=== PATIENT | female | born 1990 | race Caucasian/White ===

== ENCOUNTER → 2020-08-26 15:28 | Outpatient (CLI) | payer OTHER, MEDICAID, SELFPAY ==
--- NOTE | 2020-08-26 15:32 | DI.US.S_ITS ---
PROCEDURE: US OB >= 14 WEEKS FETUS INDICATIONS: 20 week Anatomy scan OUTSIDE/PRIOR DATING DATA: Last menstrual period (LMP): 04/08/20. LMP-based estimated date of delivery (JOHN): 01/13/21 . First dating scan (date and location): This study . Estimated date of delivery (JOHN) from first dating scan: 01/14/21 . TECHNIQUE: Real-time scanning was performed of the fetus, with image documentation and biometric measurements. Endovaginal scanning: Not needed COMPARISON: None. FINDINGS: General: A single living intrauterine gestation is present. Presentation: Breech. Placenta: Placental position is anterior , without previa. Amniotic fluid index: 14.4 cm, normal range is 5-24 cm. heart rate: 150 beats per minute. Maternal cervical canal: 4.2 cm long. Normal lower limit is 2.5 cm. biometrics: Biparietal diameter: 4.6 cm, 19 weeks 5 days Head circumference: 17.1 cm, 19 weeks 5 days Abdominal circumference: 15.1 cm, 20 weeks 2 days Femur length: 3.2 cm, 19 weeks 6 days Estimated gestational age from initial scan: 20 weeks 0 days Composite gestational age from present scan: 19 weeks 6 days Estimated weight and percentile: 327 g, 46th percentile Measurement variability for biometric dating: +/- 7 days from 14 weeks to 15 weeks 6 days gestation, +/- 10 days from 16 weeks to 21 weeks 6 days gestation, +/- 2 weeks from 22 weeks to 27 weeks 6 days gestation, +/- 3 weeks for 28 weeks gestation or later. weight reference: 4500 g or EFW >90/95% is considered macrosomia or large for gestational age. EFW <10% is small for gestational age. EFW 5% or less is considered intra-uterine growth restriction. Anatomic survey: Neuro: Ventricles are non-dilated at less than 10 mm. Cisterna magna is normal at 3-11 mm. Cerebellum is normal in size and morphology. Nuchal skin fold: Normal at less than 6 mm between 14-21 weeks gestational age. Face: Nose and lips, facial profile are normal. Spine: No evidence for spina bifida. Heart: 4-chambered heart is present, with normal ventricular outflow tracts. Diaphragm: Diaphragm is intact. Stomach: Left-sided stomach is present. Kidneys: No hydronephrosis. Normal is less than 5 mm in 2nd trimester, less than 7 mm in 3rd trimester. Cord: 3-vessel cord has orthotopic insertion. Bladder: Normal in size. Extremities: All 4 extremities identified. IMPRESSION: Appropriate interval growth, no anomaly seen. The delivery date is projected to be centered on 01/14/21. Current presentation is breech and the placenta is anterior. Dictated by: Trung Kumar M.D. on 08/26/2020 at 17:34 Approved by: Trung Kumar M.D. on 08/26/2020 at 17:37
== END ==
PROVIDERS: Referring Provider Nurse Practitioner Obstetrics & Gynecology; Visit Provider Nurse Practitioner Obstetrics & Gynecology
DX: Z36.89 Encounter for other specified antenatal screening (principal); Z3A.19 19 weeks gestation of pregnancy
CPT/HCPCS: 76811

== ENCOUNTER → 2020-11-02 08:01 | Outpatient (CLI) | payer OTHER, MEDICAID, SELFPAY | PROVIDERS: Referring Provider Nurse Practitioner Obstetrics & Gynecology; Visit Provider Nurse Practitioner Obstetrics & Gynecology | DX: Z34.90 Encounter for supervision of normal pregnancy, unspecified, unspecified trimester (principal); Z13.1 Encounter for screening for diabetes mellitus; Z3A.26 26 weeks gestation of pregnancy | CPT/HCPCS: 36415 ==

== ENCOUNTER → 2020-12-21 12:17 | Outpatient (ROUT) | payer OTHER, MEDICAID, SELFPAY | PROVIDERS: Visit Provider Nurse Practitioner Obstetrics & Gynecology | DX: Z34.93 Encounter for supervision of normal pregnancy, unspecified, third trimester (principal); Z36.85 Encounter for antenatal screening for Streptococcus B; Z3A.36 36 weeks gestation of pregnancy | CPT/HCPCS: 87081 ==

== ENCOUNTER 2020-12-21 13:51 | Inpatient (IN) | payer OTHER, MEDICAID, SELFPAY ==
--- NOTE | 2020-12-21 13:56 | P.HPOB_ITS ---
OB HPI Date/Time Date of admission: 12/21/20 Date Patient Seen: 12/21/20 Time Patient Seen: 13:56 History of Present Condition Chief complaint: obs of labor : 2 Para: 1 Estimated Date of Delivery: 01/15/21 Estimated Gestational Age (weeks): 36 Narrative: Cailin Booth is a 30 year old female @ 36 weeks 3 days by 8 week US. Noticed contractions after waking this morning around 0800, felt painful lower abdominal cramping that lasted roughly 3-4 minutes occurring every 10 minutes. + FM, no LOF or VB. Seen in office by CNM at 1030, MILLER KILN DRIED SALT reactive. Exam in office /-1. Since visit, contractions have become more intense and more frequent, occuring every 3-4 minutes. Working hard through contractions upon arrival, requesting epidural anesthesia for pain management. History of Present care: good care, initiated at week # (8) and number of visits (7) Dating criteria: based on 1st trimester US only (8 weeks) Ultrasounds: normal 1st trimester US and normal mid trimester US Obstetrical complications: none Medical complications: none Preadmission Labs Blood type: A (+) positive -: Antibody screen: negative, GBS status: unknown, HBsAG: negative, HIV: n egative, HSV 2: positive and RPR/VDLR: negative -: Chlamydia screen: not detected and Gonorrhea screen: not detected -: Rubella: immune HCT: 32.0 HCAB: negative PAP: Normal Cell-free DNA: negative, female 1 hr GTT: 87 Prior (ies) History: Vaginal delivery at 40 weeks, 7 lbs 10 oz male. Evaluation Evaluation Baseline heart rate: 140 Variability: Moderate (11-25) monitor accelerations: Present Monitor Decelerations: Absent Contraction Frequency (minutes): 3 Uterine Contraction Intensity: Strong/Firm Status: Category l Cervical dilation (cm): 9 Cervical effacement (%): 90 station: 0 PFSH Surgical History History of cholecystectomy Meds Home Medications and Allergies Home Medications Medication Instructions Recorded Confirmed Type bupropion HCl 150 mg 24 hr tablet, mg PO 12/21/20 History extended release citalopram 40 mg tablet mg 12/21/20 History Allergies Allergy/AdvReac Type Severity Reaction Status Date / Time No Known Drug Allergies Allergy Verified 12/21/20 14:23 Review of Systems Review of Systems ROS: Yes All systems reviewed with the patient and are negative except as other [place] documented Exam Vital Signs (past 8 hours): T 36.4C, HR 94 bpm, BP 135/70 Resp Auscultation: clear to auscultation bilaterally Cardio Rate: regular rate Rhythm: regular rhythm Heart Sounds: S1 normal and S2 normal Presentation: vertex Objective Labs Result Diagrams: 12/21/20 14:05 Assessment and Plan Assessment and Plan Assessment and Plan narrative: A: Late primipara Active labor 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 OB backup notified and in agreement with CNM management. Epidural anesthesia YOLANDA for pain management Will notify peds to admit upon delivery Reassess in 4 hours
[2020-12-21] MEDS: LACTATED RINGERS 1,000 ML 100 ML IV (14:12)
[2020-12-21 14:18] LABS: Add Manual Diff / Slide Review NO; Basophils Absolute Auto 0 /uL (0-100); Basophils Percent Auto 0.4 % (0-2); Eosinophils Absolute Auto 0 /uL (0-450); Eosinophils Percent Auto 0.1 % (2-4); Hemoglobin 10.9 g/dL (12.0-16.0); Lymphocytes Absolute Auto 2000 /uL (1100-4500); Mean Corpuscular Volume 87.6 fL (80-100); Monocytes Absolute Auto 1100 /uL (0-900); Neutrophils Absolute Auto 10200 /uL (1500-7000); Neutrophils Percent Auto 76.5 % (50-75); Platelet Count 244 X10^3/uL (150-400); Red Blood Cell Count 3.88 X10^6/uL (4.0-5.2); Red Cell Distribution Width 17.2 % (11.6-14.8); White Blood Cell Count 13.4 X10^3/uL (4.5-11.0)
[2020-12-21] MEDS: PENICILLIN G POTASSIUM 5,000,000 UNIT in DEXTROSE 5% IN WATER 250 ML IV (14:19)
[2020-12-21 15:14] VITALS: BP 131/91
[2020-12-21 15:29] LABS: COVID19 - ADMIT (NP swab/PCR) Negative (Negative); Strep Grp B PCR NEG for Grp B Strep
[2020-12-21] MEDS: OXYTOCIN 10 UNIT/ML VIAL 20 UNIT (17:45)
[2020-12-21] MEDS: miSOPROStoL 200 MCG TABLET 400 MCG SL (17:50)
[2020-12-21] MEDS: TRANEXAMIC ACID 1,000 MG VIAL 1000 MG (17:59)
[2020-12-21] MEDS: OXYTOCIN 10 UNIT/ML VIAL (18:00)
[2020-12-21] MEDS: ONDANSETRON 4 MG/2 ML INJ IV (18:16)
--- NOTE | 2020-12-21 18:44 | PM.OBPRVD ---
Events: Labor < 37 wks and Meconium Stained Fluid Labor & Delivery Delivery date: 12/21/20 Intrapartal Events: None Cervical ripening method: none Induction method: none Delivery monitor: external FHT and external uterine Route of delivery: Episiotomy description: None L&D Laceration Description: None Estimated blood loss (mL): 750 Anesthesia Type: Epidural Narrative: Cailin labored in semi-fowlers with effective pain management with epidural anesthesia. FHR Tracing became significant for recurrent variables, cervical exam was 10/10/+2. Pushed with excellent effort for a brief second stage, Cat II Tracing throughout. RT standing by for , Dr. Kimble/OC peds aware. Delivery of viable female at 1738. Loose nuchal cord x 1, reduced during somersault maneuver. Shoulders delivered with ease. Baby placed skin to skin for 1 minute, then cord double clamped and cut by SNM and baby taken to warmer for respiratory support with Dr. Kimble arriving to assess at 1741. Gentle cord traction and IV Pitocin given per protocol for AMTSL. Spontaneous delivery of intact Shultze presentation placenta, three vessel cord. Fundus firm, patient continued to have trickle of blood from uterus with massage. Pitocin increased and sublingual miso given. Clots continuously expressed by CNM, then Dr. Kimble. Fundus remained firm, TXA given. Dr. Barros was called, bleeding resolved prior to arrival. QBL 750 mL. Perineum intact. Mollie and left skin to skin and in stable condition at the time of this note. [place] Baby 1: gender: Female Presentation: vertex Position: Right Occiput Transverse Placenta delivery description: Spontaneous Cord Vessel Description: 3 Vessels, Nuchal Cord and Loose score (1 min): 7 score (5 min): 8 weight: 2.27 kg Plan for aftercare: Routine care
[2020-12-21] MEDS: KETOROLAC 30 MG/ML VIAL IV (23:16)
[2020-12-22 08:58] LABS: Add Manual Diff / Slide Review NO; Basophils Absolute Auto 0 /uL (0-100); Basophils Percent Auto 0.3 % (0-2); Eosinophils Absolute Auto 0 /uL (0-450); Eosinophils Percent Auto 0.3 % (2-4); Hematocrit 25.4 % (36-46); Hemoglobin 8.4 g/dL (12.0-16.0); Lymphocytes Absolute Auto 1900 /uL (1100-4500); Lymphocytes Percent Auto 18.7 % (25-40); Mean Corpuscular HGB Conc 32.9 % (30-36); Mean Corpuscular Hemoglobin 28.7 PG (26-34); Mean Corpuscular Volume 87.2 fL (80-100); Monocytes Absolute Auto 1000 /uL (0-900); Monocytes Percent Auto 9.5 % (3-14); Neutrophils Absolute Auto 7200 /uL (1500-7000); Neutrophils Percent Auto 71.2 % (50-75); Platelet Count 191 X10^3/uL (150-400); Red Blood Cell Count 2.92 X10^6/uL (4.0-5.2); Red Cell Distribution Width 16.7 % (11.6-14.8); White Blood Cell Count 10.1 X10^3/uL (4.5-11.0)
[2020-12-22] MEDS: DOCUSATE 100 MG CAPSULE PO (09:00)
--- NOTE | 2020-12-22 14:51 | PM.OBDS.1 ---
Discharge Providers Provider Date of admission: 12/21/20 13:51 Discharge Date: 12/22/20 Consults: 12/22/20 18:42 Consult to Electronics Hardware Design Engineer Routine Comment: Discharge provider: Carrie Garcia CNM Summary Hospital Course Date Patient Seen: 12/22/20 Time Patient Seen: 14:51 Diagnoses: o80 Hospital Course: Cailin is voiding, ambulating and independently. Tolerating a general diet. Denies pain. Bleeding is minimal. Eager for discharge to home. Peripartum Data Delivery Method: Natural Vaginal Laceration Description: None Episiotomy description: None Procedures: NSVB complications: none 1: Gender: Female Disposition of : home Discharge Diagnosis (1) Encounter for full-term uncomplicated delivery: Start Date: 12/21/20 Start Time: 17:38 Status: Acute Status at Discharge Cognitive/behavioral status at discharge: calm Functional status at discharge: independent ambulation Overall status at discharge: patient is progressing back to baseline Time Spent with Patient Time attestation: Total time spent providing and/or coordinating discharge services: Time spent: Less than 30 minutes Objective Labs Result Diagrams: 12/22/20 08:45 Labs: Laboratory Results - last 24 hr 12/21/20 12/21/20 12/21/20 14:05 14:05 14:05 WBC RBC Hgb Hct MCV MCH MCHC RDW Plt Count Neut % (Auto) Lymph % (Auto) [place]asper % (Auto) Eos % (Auto) Baso % (Auto) Neut # (Auto) Lymph # (Auto) Jasper # (Auto) Eos # (Auto) Baso # (Auto) SARS-CoV-2 (PCR) Negative Group B Strep (PCR) Neg for grp b strep Blood Type A Positive Antibody Screen Negative 12/22/20 08:45 WBC 10.1 RBC 2.92 L Hgb 8.4 L Hct 25.4 L MCV 87.2 MCH 28.7 MCHC 32.9 RDW 16.7 H Plt Count 191 Neut % (Auto) 71.2 Lymph % (Auto) 18.7 L Jasper % (Auto) 9.5 Eos % (Auto) 0.3 L Baso % (Auto) 0.3 Neut # (Auto) 7200 H Lymph # (Auto) 1900 Jasper # (Auto) 1000 H Eos # (Auto) 0 Baso # (Auto) 0 SARS-CoV-2 (PCR) Group B Strep (PCR) Blood Type Antibody Screen Exam Vital Signs (past 8 hours): Bp 118/83mmHg, HR 83bpm, RR 16/min, T 98.1F Temporal Other: Fundus firm @ U-2, lochia scant, no clots. Perineum intact without edema. Psych Appearance: grossly normal and well kempt Mood: congruent mood Affect: normal affect Discharge Plan Discharge Plan Patient Disposition: Home Discharge orders & Medications Prescriptions: Continued citalopram 40 mg tablet RF: 0 bupropion HCl [Wellbutrin XL] 150 mg tablet extended release 24 hr 150 mg PO RF: 0 Follow up/Referrals: Carrie Garcia CNM [[employer] Portfolio Advisor] - (Follow-up by Telehealth 01/04/2021 @ 0900 Follow-up in office 02/06/21 @ 1200) Diet/Activity/Treatments Diet: Diet as Tolerated and Regular Activity: pelvic rest x 6 weeks Skin/Wound/Dressing Care Report to your healthcare provider any signs of infection, such as:: chills, fever, increased pain, unusual drainage and unusual redness Visit Report/Discharge Packet Instructions: Depression
[2020-12-22 15:43] VITALS: BP 122/85; PULSE 69; RESP 16; TEMP 36.5
== END 2020-12-22 15:30 | disposition home or self-care (01) | DRG 560 ==
PROVIDERS: Admitting Provider Nurse Practitioner Obstetrics & Gynecology; Referring Provider Nurse Practitioner Obstetrics & Gynecology; Visit Provider Nurse Practitioner Obstetrics & Gynecology
DX: O60.14X0 Preterm labor third trimester with preterm delivery third trimester, not applicable or unspecified (principal); Z36.85 Encounter for antenatal screening for Streptococcus B; Z3A.36 36 weeks gestation of pregnancy; Z37.0 Single live birth; O98.32 Other infections with a predominantly sexual mode of transmission complicating childbirth; B00.9 Herpesviral infection, unspecified; O77.0 Labor and delivery complicated by meconium in amniotic fluid; O76 Abnormality in fetal heart rate and rhythm complicating labor and delivery; O69.81X0 Labor and delivery complicated by cord around neck, without compression, not applicable or unspecified; Z20.822 Contact with and (suspected) exposure to COVID-19; Z34.93 Encounter for supervision of normal pregnancy, unspecified, third trimester
CPT/HCPCS: 01967; 36415; 59050; 85025; 86850; 86900; 86901; 87081; 87147; 87635; 87653; C9803; G0379; J1885; J2405; J2540; J2590; S0191